=== PATIENT | female | born 1960 | race Caucasian/White ===

== ENCOUNTER 2019-02-14 12:33 | Emergency (ER) | payer BC, OTHER ==
[2019-02-14] MEDS ORDERED: IPRATROPIUM/ALBUTEROL 3 ML NEB INH STA (13:18)
--- NOTE | 2019-02-14 13:27 | ED Physician Documentation ---
PD HPI DYSPNEA - Stated complaint Stated Complaint: SOA - Chief complaint Chief Complaint: Resp - Additional information Additional information: 58-year-old female presents the emergency department with several days of dyspnea. The patient has a history of asthma but is not getting relief with her normal medications. The patient denies chest pain or any significant changes with exertion. The patient denies URI symptoms or provoking factors. The shortness of breath is roughly the same at rest. The patient denies unilateral leg pain or leg swelling. No other associated symptoms. Symptoms are described as moderate Review of Systems Constitutional: denies: Fever, Chills, Fatigue Eyes: denies: Discharge Ears: denies: Ear pain Nose: denies: Congestion Throat: denies: Sore throat Cardiac: denies: Chest pain / pressure Respiratory: reports: Dyspnea. denies: Cough, Hemoptysis GI: denies: Abdominal Pain : denies: Dysuria Skin: denies: Rash Musculoskeletal: denies: Neck pain Neurologic: denies: Generalized weakness PD PAST MEDICAL HISTORY - Past Medical History Cardiovascular: None Respiratory: Asthma Endocrine/Autoimmune: None GI: GERD HEENT: None Psych: Depression Musculoskeletal: Osteoarthritis - Past Surgical History Past Surgical History: Yes Ortho: Other /[employer]LL [employer]: Hysterectomy HEENT: Tonsil/Adenoidectomy - Present Medications Home Medications: Ambulatory Orders Medication Instructions Recorded Confirmed Ciprofloxacin [Cipro] 500 mg PO BID #14 tablet 05/31/14 Levothyroxine [Synthroid] 125 mcg PO DAILY 05/31/14 05/31/14 Rabeprazole Sodium [Aciphex] 20 mg PO DAILY 05/31/14 05/31/14 Sertraline HCl 50 mg PO DAILY 05/31/14 05/31/14 Albuterol 2.5 mg INH Q4H PRN #30 neb 02/14/19 predniSONE [Prednisone] 60 mg PO DAILY #12 tablet 02/14/19 - Allergies Allergies/Adverse Reactions: Allergies Allergy/AdvReac Type Severity Reaction Status Date / Time aspirin Allergy Hives Verified 05/31/14 20:01 Penicillins Allergy Unknown Verified 05/31/14 20:02 - Social History Does the pt smoke?: No Smoking Status: Never smoker Does the pt drink ETOH?: Yes Does the pt have substance abuse?: No - Immunizations Immunizations are current?: Yes - POLST Patient has POLST: No PD ED PE NORMAL - General General: Alert and oriented X 3, No acute distress - HEENT HEENT: Atraumatic, PERRL, EOMI, Ears normal, Pharynx benign - Cardiac Cardiac: RRR, Strong equal pulses - Respiratory Respiratory: No respiratory distress, Clear bilaterally - Derm Derm: Normal color - Extremities Extremities: No deformity, No tenderness to palpate, No edema - Neuro Neuro: Alert and oriented X 3, Normal speech - Psych Psych: Normal affect Results - Vitals Vitals: Vital Signs - 24 hr 02/14/19 12:37 Temperature 36.6 C Heart Rate 85 Respiratory 20 Rate Blood Pressure 159/81 H O2 Saturation 98 Oxygen O2 Source Room air - EKG (time done) 13:19 Rate: Rate (enter#) Rhythm: NSR [place]: Normal Intervals: Normal NV, QRS normal QRS: Normal Ischemia: Normal ST segments - Labs Labs: Laboratory Tests 02/14/19 02/14/19 02/14/19 13:24 13:24 13:24 WBC 6.6 RBC 4.78 Hgb 13.6 Hct 40.7 MCV 85.3 MCH 28.5 MCHC 33.5 RDW 13.0 Plt Count 246 MPV 8.0 Neut # (Auto) 3.6 Lymph # (Auto) 2.2 [place] # (Auto) 0.5 Eos # (Auto) 0.2 Baso # (Auto) 0.2 H Absolute Nucleated RBC 0.00 Nucleated RBC % 0.0 D-Dimer Sodium 142 Potassium 3.4 L Chloride 105 Carbon Dioxide 26 Anion Gap 11.0 BUN 10 Creatinine 0.9 Estimated GFR (MDRD) 64 L Glucose 99 Calcium 9.5 Total Bilirubin 0.5 AST 25 ALT 23 Alkaline Phosphatase 74 Troponin I < 0.04 B-Natriuretic Peptide Total Protein 7.6 Albumin 4.3 Globulin 3.3 Albumin/Globulin Ratio 1.3 Lipase 28 02/14/19 02/14/19 13:24 13:24 WBC RBC Hgb Hct MCV MCH MCHC RDW Plt Count MPV Neut # (Auto) Lymph # (Auto) [place] # (Auto) Eos # (Auto) Baso # (Auto) Absolute Nucleated RBC Nucleated RBC % D-Dimer 221.1 Sodium Potassium Chloride Carbon Dioxide Anion Gap BUN Creatinine Estimated GFR (MDRD) Glucose Calcium Total Bilirubin AST ALT Alkaline Phosphatase Troponin I B-Natriuretic Peptide 12 Total Protein Albumin Globulin Albumin/Globulin Ratio Lipase - Rads (name of study) CXR Radiology: Final report received, See rad report PD MEDICAL DECISION MAKING - ED course ED course: The patient's workup does not reveal any other acute etiology, the patient appears appropriate for discharge with ongoing outpatient management. The patient will follow up with primary care for reevaluation next week. The patient will return to the emergency department immediately for any worsening or concerns Departure - Departure Disposition: 01 Home, Self Care Clinical Impression: Asthma exacerbation Qualifiers: Asthma severity: mild Asthma persistence: unspecified Qualified Code(s): J45.901 - Unspecified asthma with (acute) exacerbation Condition: Good Instructions: ED Bronchitis Asthmatic Follow-Up: ANIRUDH CAMPBELL [Primary Care Provider] - Within 1 week Prescriptions: Albuterol 2.5 mg INH Q4H PRN #30 neb PRN Reason: Wheezing predniSONE [Prednisone] 60 mg PO DAILY #12 tablet Comments: Please return to the emergency department for worsening symptoms or any concerns
[2019-02-14 13:37] LABS: BASOPHILS # (AUTO) 0.2 10^3/uL (0.0-0.1); BASOPHILS % (AUTO) 2.5 %; EOSINOPHILS # (AUTO) 0.2 10^3/uL (0.0-0.7); EOSINOPHILS % (AUTO) 2.4 %; HGB - HEMOGLOBIN 13.6 g/dL (12.0-16.0); LYMPHOCYTES # (AUTO) 2.2 10^3/uL (1.5-3.5); LYMPHOCYTES % (AUTO) 33.3 %; MEAN CORPUSCULAR HEMOGLOBIN 28.5 pg (27.0-31.0); MEAN CORPUSCULAR HGB CONC 33.5 g/dL (32.0-36.0); MEAN CORPUSCULAR VOLUME 85.3 fL (81.0-99.0); MONOCYTES # (AUTO) 0.5 10^3/uL (0.0-1.0); NEUTROPHILS # (AUTO) 3.6 10^3/uL (1.5-6.6); NEUTROPHILS % (AUTO) 54.8 %; PLT - PLATELET COUNT 246 10^3/uL (130-450); RED BLOOD COUNT 4.78 10^6/uL (4.20-5.40); WHITE BLOOD COUNT 6.6 x10^3/uL (4.8-10.8)
[2019-02-14 13:49] LABS: ALBUMIN 4.3 g/dL (3.2-5.5); ALBUMIN/GLOBULIN RATIO 1.3 (1.0-2.2); BILIRUBIN,TOTAL 0.5 mg/dL (0.2-1.0); CALCIUM 9.5 mg/dL (8.5-10.3); CREATININE 0.9 mg/dL (0.4-1.0); TOTAL PROTEIN 7.6 g/dL (6.7-8.2)
--- NOTE | 2019-02-14 14:09 | XRAY Report ---
Reason: cp Procedure Date: 02/14/2019 Accession Number: [id number] / [id number] Procedure: XR - Chest 2 View X-Ray CPT Code: 32920 FULL RESULT: EXAM: CHEST RADIOGRAPHY EXAM DATE: 02/14/2019 01:49 PM. CLINICAL HISTORY: Chest pain. COMPARISON: XR CHEST PA AND LAT 01/01/2013 12:07 PM. TECHNIQUE: 2 views. FINDINGS: Lungs/Pleura: No focal opacities evident. No pleural effusion. No pneumothorax. Normal volumes. Mediastinum: Heart and mediastinal contours are unremarkable. Other: None. IMPRESSION: No acute findings. RADIA
[2019-02-14] MEDS ORDERED: predniSONE 20 MG TABLET PO STA (14:16)
[2019-02-14 15:03] VITALS: BP 171/91
== END 2019-02-14 15:10 | disposition home or self-care (01) ==
LOC: ED 12:33
DX: J45.901 Unspecified asthma with (acute) exacerbation (principal)
CPT/HCPCS: 36415; 71046; 80053; 83690; 83880; 84484; 85025; 85379; 93005; 94640; 99283; J7512

== ENCOUNTER 2023-09-10 10:31 | Outpatient (CLI) | payer OTHER ==
[2023-09-10 19:35] LABS: BASOPHILS # (AUTO) 0.2 10^3/uL (0.0-0.1); BASOPHILS % (AUTO) 1.9 %; EOSINOPHILS # (AUTO) 0.2 10^3/uL (0.0-0.7); HGB - HEMOGLOBIN 14.5 g/dL (12.0-16.0); LYMPHOCYTES # (AUTO) 2.2 10^3/uL (1.5-3.5); LYMPHOCYTES % (AUTO) 28.8 %; MEAN CORPUSCULAR HEMOGLOBIN 28.3 pg (27.0-31.0); MEAN CORPUSCULAR HGB CONC 31.5 g/dL (32.0-36.0); MEAN CORPUSCULAR VOLUME 89.7 fL (81.0-99.0); MEAN PLATELET VOLUME 10.2 fL (7.9-10.8); MONOCYTES # (AUTO) 0.4 10^3/uL (0.0-1.0); MONOCYTES % (AUTO) 4.8 %; NEUTROPHILS # (AUTO) 4.7 10^3/uL (1.5-6.6); NEUTROPHILS % (AUTO) 61.2 %; PLT - PLATELET COUNT 294 10^3/uL (130-450); RED BLOOD COUNT 5.13 10^6/uL (4.20-5.40); RED CELL DISTRIBUTION WIDTH 13.2 % (12.0-15.0); WHITE BLOOD COUNT 7.7 x10^3/uL (4.8-10.8)
[2023-09-10 19:46] LABS: RHEUMATOID FACTOR NEGATIVE (Negative)
[2023-09-10 19:50] LABS: ALBUMIN 4.5 g/dL (3.2-5.5); ALBUMIN/GLOBULIN RATIO 1.6 (1.0-2.2); ALKALINE PHOSPHATASE 77 IU/L (42-121); ALT ALANINE AMINOTRANSFERASE 16 IU/L (10-60); AST ASPARTATE AMINOTRANSFERASE 18 IU/L (10-42); BILIRUBIN,TOTAL 0.5 mg/dL (0.2-1.0); BUN - BLOOD UREA NITROGEN 11 mg/dL (6-20); CALCIUM 9.4 mg/dL (8.5-10.3); CARBON DIOXIDE - CO2 31 mmol/L (21-32); CHLORIDE 102 mmol/L (101-111); CHOL/HDL RATIO 6.3 (<4.4); CHOLESTEROL 283 mg/dL; CREATININE 0.9 mg/dL (0.6-1.3); CRP - C-REACTIVE PROTEIN 0.6 mg/dL (<0.5); GFR - MDRD 63 (>89); GLUCOSE 95 mg/dL (74-104); HDL CHOLESTEROL 45 mg/dL; POTASSIUM 3.8 mmol/L (3.5-4.5); SODIUM 139 mmol/L (135-145); TOTAL PROTEIN 7.3 g/dL (6.4-8.9); TRIGLYCERIDES 401 mg/dL (48-352); URIC ACID 5.1 mg/dL (2.3-6.6)
[2023-09-10 20:11] LABS: THYROID STIMULATING HORMONE 2.86 uIU/mL (0.34-5.60)
[2023-09-10 20:50] LABS: LDL CHOLESTEROL,DIRECT 162 mg/dL (75-193); LDLD/HDL RATIO 3.6 (<4.4)
[2023-09-12 19:07] LABS: ANTI-DNA (DS) AB QN 1 IU/mL (0-9)
[2023-09-13 15:08] LABS: ANTINUCLEAR ANTIBODIES IFA Negative (.)
[2023-09-13 16:08] LABS: CYCLIC CITRULLINATED PEP IGG/A 0 units (0-19)
== END 2023-09-10 10:32 | disposition home or self-care (01) ==
LOC: LAB.N 10:31
PROVIDERS: ATTEND Nurse Practitioner
DX: I10 Essential (primary) hypertension (principal); Z13.220 Encounter for screening for lipoid disorders; E03.9 Hypothyroidism, unspecified; M25.50 Pain in unspecified joint
CPT/HCPCS: 36415; 80053; 80061; 83721; 84439; 84443; 84550; 85025; 85651; 86038; 86140; 86200; 86225; 86430

== ENCOUNTER 2023-11-13 11:58 | Outpatient (CLI) | payer OTHER | END 2023-11-13 11:59 | disposition critical access hospital (66) | LOC: EMS 11:58 | PROVIDERS: ATTEND Emergency Medicine | DX: M25.552 Pain in left hip (principal); X50.0XXA Overexertion from strenuous movement or load, initial encounter; Y92.007 Garden or yard of unspecified non-institutional (private) residence as the place of occurrence of the external cause | CPT/HCPCS: A0425; A0427 ==